=== PATIENT | female | born 1990 | race Caucasian/White ===

== ENCOUNTER 2018-09-21 15:49 | Emergency (ER) | payer MEDICAID ==
[~2018-09-21] VITALS: Ht 175.3 cm; Wt 78.7 kg
[2018-09-21 17:26] LABS: MICROSCOPIC INDICATED
[2018-09-21 17:36] LABS: CULTURE INDICATED? YES
[2018-09-21 18:24] VITALS: BP 93/44
== END 2018-09-21 18:46 | disposition home or self-care (01) ==
LOC: ED 18:40
DX: O23.11 Infections of bladder in pregnancy, first trimester (principal); O99.331 Smoking (tobacco) complicating pregnancy, first trimester; Z3A.01 Less than 8 weeks gestation of pregnancy
CPT/HCPCS: 36415; 76801; 81001; 84702; 86901; 87086; 99285

== ENCOUNTER 2018-09-24 10:46 | Emergency (ER) | payer MEDICAID ==
[~2018-09-24] VITALS: Ht 175.3 cm; Wt 78.8 kg
[2018-09-24 11:00] VITALS: BP 117/75
== END 2018-09-24 12:25 | disposition home or self-care (01) ==
LOC: ED 12:19
DX: O03.4 Incomplete spontaneous abortion without complication (principal)
CPT/HCPCS: 36415; 76801; 84702; 99284

== ENCOUNTER 2018-12-03 12:21 | Emergency (ER) | payer SELFPAY ==
[~2018-12-03] VITALS: Ht 175.3 cm; Wt 79.1 kg
[2018-12-03 12:36] VITALS: BP 117/76
[2018-12-03] MEDS ORDERED: DEXAMETHASONE 4 MG TABLET ONE (12:59)
[2018-12-03] MEDS ORDERED: DEXAMETHASONE 4 MG TABLET PO ONE (13:00)
== END 2018-12-03 13:12 | disposition home or self-care (01) ==
LOC: ED 13:09
DX: J03.90 Acute tonsillitis, unspecified (principal); F17.210 Nicotine dependence, cigarettes, uncomplicated
CPT/HCPCS: 99283